=== PATIENT | male | born 1955 | race Caucasian/White ===

== ENCOUNTER 2020-09-09 08:11 | Emergency (ER) | payer BC, SELFPAY ==
--- NOTE | ~2020-09-09 | XR_ITS ---
EXAMINATION: XR finger 3rd RT min 2V EXAM DATE: 09/09/2020 09:27 INDICATION: Check finger tip in door. Pain. Initial encounter. TECHNIQUE: Right 3rd finger frontal, lateral and oblique projections obtained and reviewed. There is no prior study for comparison. FINDINGS: There are no acute fractures or dislocations identified. There is no subcutaneous gas. The re is soft tissue swelling over the proximal interphalangeal joint dorsally. There are no radiopaqu e foreign bodies. 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 IMPRESSION: 1. Right 3rd finger exam without acute osseous findings. 2. Soft tissue swelling. Reviewed, dictated and finalized at location B. [facility] [employer] NURSE
[2020-09-09 08:18] VITALS: BP 164/94; PULSE 77; RESP 16; TEMP 36.8; O2SAT 99
[2020-09-09] MEDS: LIDOCAINE, EPINEPHRINE, TETRACAINE VISCOUS SOLN 3 ML TOPICAL (08:38)
--- NOTE | 2020-09-09 09:22 | ED.WOUNDLAC ---
HPI - Wound/Laceration General Chief Complaint: Wound/Laceration Stated Complaint: FINGER LACERATION Time Seen by Provider: 09/09/20 08:25 Source: patient and RN notes reviewed Mode of arrival: ambulatory Limitations: no limitations History of Present Illness HPI narrative: 65-year-old male presents with concern for laceration, smash injury to the third digit of his right hand. Reports just prior to arrival he caught his hand in a door. Reports laceration to the palmar aspect of the digit. Reports he is not up-to-date on his vaccinations. Reports he is on a blood thinner, and has had trouble getting the wound to stop bleeding. Denies any decreased sensation, range of motion, strength in the digit. Related Data Home Medications Medication Instructions Recorded Confirmed aspirin 81 mg tablet,delayed 81 mg PO DAILY 07/10/19 07/10/19 release clopidogrel 75 mg tablet 75 mg PO DAILY 07/10/19 07/10/19 gabapentin 300 mg capsule 300 mg PO TID 07/10/19 07/10/19 therapeutic multivitamin 1 tablet PO DAILY 07/10/19 07/10/19 Allergies Allergy/AdvReac Type Severity Reaction Status Date / Time iodine Allergy Unknown Hives Verified 03/11/20 11:05 Review of Systems Review of Systems: Narrative: CONSTITUTIONAL: Denies malaise, chills, sweats, or fever. SKIN: Reports laceration to the palmar aspect of the distal end of the third digit of the right hand MUSCULOSKELETAL: Reports pain to the distal tip of the third digit of the right hand NEUROLOGIC: Denies numbness, weakness All systems reviewed & are unremarkable except as noted in HPI and below PMFSH Past Medical History Medical History (Updated 09/09/20 @ 09:33 by Porsche Stephens NP) CAD (coronary artery disease) Colonic polyp HLD (hyperlipidemia) HTN (hypertension) Myocardial infarction Surgical History Surgical History (Updated 07/10/19 @ 13:26 by Arabella Vargas CMA) History of placement of stent in LAD coronary artery S/P right coronary artery (RCA) stent placement Family History Family History (Updated 07/10/19 @ 13:27 by Arabella Vargas CMA) Mother Hypertension Father Hypertension Cerebral aneurysm Social History Social History Smoking status: Former smoker Smoking end date: 07/03/10 Alcohol intake: current Comments At time of signature, agree with nursing past medical, surgical, social and family history. There is no relevant family history pertinent to the presenting complaint Exam Narrative: Exam Narrative: GENERAL: Well-appearing, well-nourished, and in no acute distress. HEAD: Normocephalic EYES: PERRLA, conjunctivae clear NECK: Supple. CHEST: Speaks in full sentences. No respiratory distress. HEART: Regular rate and rhythm. Normal and equal peripheral pulses. EXTREMITIES: Third digit of right hand has normal strength and sensation. 5/5 strength with digit flexion, extension. Range of motion normal. No clubbing, cyanosis, or edema noted. Distal tenderness.Normal digital cascade with flexion of fingers, median, ulnar and radial nerve intact. Normal sensation of each side of finger. Can perform 'okay' sign, 'cross over finger test of index and middle fingers' and 'thumbs up' sign. No scissoring. Normal thumb opposition. Good capillary refill and radial pulse. Distal capillary refill less than 3 seconds. SKIN: Warn, dry, intact, pink. 1.5 cm irregular laceration noted to the dorsal aspect of distal tip of the third digit of the right hand, into the subcutaneous tissue with bleeding noted. Subungual hematoma noted to the third digit of the right hand NEURO: Alert and oriented x3. PSYCH: Normal mood and affect Course Course Emergency Course: Patient is aware of diagnosis, understands and agrees to treatment plan. Anticipatory guidance given. Patient agrees to follow-up as directed and is aware of reasons to seek care at the emergency department. Portions of this record may have been created with voice recognition software Vital Signs
[2020-09-09] MEDS: TETANUS,DIPHTHERIA,AC PERTUSSIS ADULT (0.5 ML) BOOSTRIX IM (09:33)
== END 2020-09-09 09:49 | disposition home or self-care (01) ==
PROVIDERS: Emergency Provider Nurse Practitioner; PCP Internal Medicine
DX: S61.212A Laceration without foreign body of right middle finger without damage to nail, initial encounter (principal); S60.031A Contusion of right middle finger without damage to nail, initial encounter; W23.0XXA Caught, crushed, jammed, or pinched between moving objects, initial encounter; Z23 Encounter for immunization; Z87.891 Personal history of nicotine dependence; I25.10 Atherosclerotic heart disease of native coronary artery without angina pectoris; E78.5 Hyperlipidemia, unspecified; I10 Essential (primary) hypertension; I25.2 Old myocardial infarction; Z79.82 Long term (current) use of aspirin; Z95.5 Presence of coronary angioplasty implant and graft
CPT/HCPCS: 12001; 11740; 73140; 90471; 90715; 99213; G0463

== ENCOUNTER 2020-09-11 08:29 | Outpatient (CLI) | payer BC, SELFPAY ==
[2020-09-11 09:01] LABS: Basophils Absolute Auto 0.1 K/mm3 (0.0-0.1); Basophils Percent Auto 0.8 % (0.2-1.2); Eosinophils Absolute Auto 0.5 K/mm3 (0-0.3); Eosinophils Percent Auto 5.8 % (0-4.4); Hematocrit 43.1 % (42.0-52.0); Hemoglobin 14.6 g/dL (14.0-18.0); Immature Granulocyte Absolute 0.05 K/mm3 (0.00-0.031); Immature Granulocyte Percent A 0.6 % (0-0.5); Lymphocytes Absolute Auto 1.61 K/mm3 (0.9-3.2); Lymphocytes Percent Auto 19.1 % (18.3-44.2); Mean Corpuscular HGB Conc 33.9 g/dl (32-36); Mean Corpuscular Hemoglobin 29.9 pg (26-34); Mean Corpuscular Volume 88.1 fl (80-100); Mean Platelet Volume 11.7 fl (7.4-10.4); Monocytes Absolute Auto 0.9 K/mm3 (0.1-0.6); Neutrophils Absolute Auto 5.3 K/mm3 (1.3-6.7); Neutrophils Percent Auto 62.7 % (45.5-73.1); Platelet Count Result 205 k/mm3 (150-375); Red Blood Count 4.89 M/mm3 (4.6-6.20); Red Cell Distribution Width 12.8 % (11.5-14.5); White Blood Count 8.4 K/mm3 (4.5-10.0)
[2020-09-11 09:19] LABS: Alanine Aminotransferase 25 U/L (4-50); Alkaline Phosphatase 78 U/L (38-126); Anion Gap 4 mmol/L (8-16); Aspartate Amino Transferase 27 U/L (17-59); Bilirubin,Total 0.5 mg/dL (0.2-1.3); Blood Urea Nitrogen 17 mg/dL (9-20); Calcium 9.1 mg/dL (8.4-10.2); Carbon Dioxide 31 mmol/L (22-30); Chloride 104 mmol/L (98-107); Cholesterol 160 mg/dL (0-200); Estimated Glomerular Filt Rate > 60; Glucose 104 mg/dL (75-110); HDL Direct 45 mg/dL; Potassium 4.1 mmol/L (3.4-5.0); Sodium 139 mmol/L (137-145); Triglycerides 98 mg/dL (<150)
[2020-09-11 09:30] LABS: LDL Cholesterol Direct 84 mg/dL
[2020-09-11 09:50] LABS: Prostate Specific Antigen 1.3 ng/mL (< OR = 4.0)
== END 2020-09-11 08:30 | disposition home or self-care (01) ==
PROVIDERS: PCP Internal Medicine; Visit Provider Clinical Nurse Specialist
DX: I10 Essential (primary) hypertension (principal); E78.2 Mixed hyperlipidemia; Z12.5 Encounter for screening for malignant neoplasm of prostate
CPT/HCPCS: 36415; 80053; 80061; 84153; 85025; G0103

== ENCOUNTER 2021-05-21 10:30 | Outpatient (RCR) | payer BC, SELFPAY ==
[2021-04-22 09:00] VITALS: BP_SYST 160
--- NOTE | 2021-04-22 16:11 | PTOPEVAL ---
Thank you for referring Orion Jane to [facility] [place].? The patient is scheduled to be seen for therapy? 2 x/week for 6 weeks. Please review, sign, date and return this plan of care CHRISTINA. I agree with and certify that the following plan of care is medically necessary. Referring Physician Date Attending Provider: Vicki Calle, REAL ESTATE OFFICE SUPERVISOR-C Diagnosis right shoulder pain Onset 4 wk Cause no injury Additional Evaluation Detail His hobbies include fishing, yardwork, taking care of animals, cutting wood. He has a large aquarium he uses 5 gallon bucket to change the water. Subjective Information He woke up with shoulder pain Query Text:As Reported By Patient/ 4 wks ago. He reports Family increased pain with lying on side, reaching motion, ADL's and carrying objects. He reports limitation with behavioral scientist. Reports the pain has improved slightly in the past 3 days but unsure why its feels better. He has applied ice/heat with temporary relief. Pain Assessment Right Shoulder(s) Reported Pain Level 4 Pain Description Radiating,Sharp,Soreness Pain Radiation Right Arm Pain Frequency Acute Lowest Pain Intensity 2 Greatest Pain Intensity 8 Pain Aggravating Factors ADL's,Exercise/Activity, Lifting,Prolonged Position Upper Extremity Range of Motion Scapular/ Shoulder Range of Motion Right Shoulder Flexion - Active 115 Shoulder Flexion - Passive 160 Shoulder Extension - Active 28 Shoulder Extension - Passive 60 Shoulder Abduction - Active 130 Shoulder Abduction - Passive 160 Shoulder Medial Rotation - Active 50 Shoulder Medial Rotation - Active buttock:Reach Behind the Back Shoulder Lateral Rotation - Active 85 Shoulder Lateral Rotation - Active C6:Reach Behind the Head Scapular/Shoulder Range of Motion Muscle Weakness,Soft Tissue Limitations Restriction Scapular/Shoulder Range of Motion rotation in supine with Gh Comments abducted 80 dg Upper Extremity Muscle Strength Testing Scapular/Shoulder Right Scapular Retraction - Middle Trapezius 2 Poor Scapular Retraction - Lower Trapezius 2 Poor Shoulder Flexion Strength 3- Fair - Shoulder Extension Strength 4- Good - Shoulder Abduction Strength 3- Fair
--- NOTE | 2021-05-21 11:10 | PTOPEVAL ---
Physical therapy discharge summary Thank you for referring Orion Jane to [facility] [place]. Orion has attended 9 therapy visits to address his shoulder impairments. As a result of skilled therapy services he demonstrates improved shoulder motion, improve strength and improved ability to perform daily task. He has reached maximal potential with skilled therapy services at this time. Will DC skilled PT services. Please review, sign, date and return this discharge summary CHRISTINA. I agree with and certify that the following plan of care is medically necessary. Referring Physician Date Attending Provider: Vicki Calle, ISABEL-C Diagnosis right shoulder pain Onset 4 wk Cause no injury Additional Evaluation Detail His hobbies include fishing, yardwork, taking care of animals, cutting wood. He has a large aquarium he uses 5 gallon bucket to change the water. Subjective Information He feels therapy has helped Query Text:As Reported By Patient/ with improved shoulder motion, Family improve use of the right UE with daily task. He is more aware of his shoulder and UE with daily task and lifting. He is performing HEP daily. Improved dmaien with sleeping with 6-7 hr of sleep. Pain Assessment Right Shoulder(s) Reported Pain Level 1 Pain Description Soreness Lowest Pain Intensity 1 Greatest Pain Intensity 3 Upper Extremity Range of Motion Scapular/ Shoulder Range of Motion Right Shoulder Flexion - Active 160 Shoulder Extension - Active 58 Shoulder Abduction - Active 170 Shoulder Medial Rotation - Active 70 Shoulder Medial Rotation - Active L2:Reach Behind the Back Shoulder Lateral Rotation - Active 90 Shoulder Lateral Rotation - Active T1:Reach Behind the Head Scapular/Shoulder Range of Motion Muscle Weakness,Soft Tissue Limitations Restriction Scapular/Shoulder Range of Motion rotation in supine with Gh Comments abducted 80 dg Upper Extremity Muscle Strength Testing Scapular/Shoulder Right Scapular Retraction - Middle Trapezius 3 Fair Scapular Retraction - Lower Trapezius 3 Fair Shoulder Flexion Strength 3+ Fair + Shoulder Extension Strength 4+ Good + Shoulder Abduction Strength 3+ Fair + Shoulder Medial Rotation Strength 4 Good Shoulder Lateral Rotation Strength 4 Good Shoulder Strength Comments pain with flex and abduction Palpation Assessment Palpation mild tenderness of right deltoid, bicep muscle at
== END 2021-05-24 16:12 | disposition home or self-care (01) ==
LOC: ANHPT 10:30
PROVIDERS: PCP Internal Medicine; Visit Provider Clinical Nurse Specialist
DX: M25.511 Pain in right shoulder (principal)
CPT/HCPCS: 97014; 97110; 97140; 97162; G0283

== ENCOUNTER 2021-10-04 10:27 | Outpatient (CLI) | payer BC, SELFPAY ==
[2021-10-04 11:08] LABS: Basophils Absolute Auto 0.1 K/mm3 (0.0-0.1); Basophils Percent Auto 0.9 % (0.2-1.2); Eosinophils Absolute Auto 0.4 K/mm3 (0-0.3); Eosinophils Percent Auto 5.7 % (0-4.4); Hematocrit 46.5 % (42.0-52.0); Hemoglobin 16.1 g/dL (14.0-18.0); Immature Granulocyte Absolute 0.04 K/mm3 (0.00-0.031); Immature Granulocyte Percent A 0.5 % (0-0.5); Lymphocytes Absolute Auto 1.35 K/mm3 (0.9-3.2); Lymphocytes Percent Auto 17.6 % (18.3-44.2); Mean Corpuscular HGB Conc 34.6 g/dl (32-36); Mean Corpuscular Hemoglobin 30.7 pg (26-34); Mean Corpuscular Volume 88.7 fl (80-100); Mean Platelet Volume 11.3 fl (7.4-10.4); Monocytes Percent Auto 12.5 % (2.6-8.5); Neutrophils Absolute Auto 4.8 K/mm3 (1.3-6.7); Neutrophils Percent Auto 62.8 % (45.5-73.1); Platelet Count Result 207 k/mm3 (150-375); Red Blood Count 5.24 M/mm3 (4.6-6.20); Red Cell Distribution Width 12.8 % (11.5-14.5); White Blood Count 7.7 K/mm3 (4.5-10.0)
[2021-10-04 11:18] LABS: Alanine Aminotransferase 23 U/L (4-50); Albumin Level 4.4 g/dL (3.5-5.1); Alkaline Phosphatase 73 U/L (38-126); Anion Gap 7 mmol/L (8-16); Aspartate Amino Transferase 32 U/L (17-59); Bilirubin,Total 0.5 mg/dL (0.2-1.3); Blood Urea Nitrogen 14 mg/dL (9-20); Carbon Dioxide 28 mmol/L (22-30); Chloride 101 mmol/L (98-107); Cholesterol 188 mg/dL (0-200); Estimated Glomerular Filt Rate > 60; Glucose 106 mg/dL (65-110); HDL Direct 54 mg/dL; Potassium 4.2 mmol/L (3.4-5.0); Sodium 136 mmol/L (137-145); Triglycerides 69 mg/dL (<150)
[2021-10-04 11:28] LABS: LDL Cholesterol Direct 101 mg/dL
[2021-10-04 11:48] LABS: Prostate Specific Antigen 1.3 ng/mL (< OR = 4.0)
== END 2021-10-04 10:28 | disposition home or self-care (01) ==
PROVIDERS: PCP Internal Medicine; Visit Provider Clinical Nurse Specialist
DX: E78.2 Mixed hyperlipidemia (principal); I10 Essential (primary) hypertension; Z12.5 Encounter for screening for malignant neoplasm of prostate
CPT/HCPCS: 36415; 80053; 80061; 84153; 85025; G0103

== ENCOUNTER 2021-10-07 16:08 | Outpatient (CLI) | payer BC, SELFPAY ==
--- NOTE | ~2021-10-07 | CT_ITS ---
EXAMINATION:CT lung screening DATE: 10/07/2021 16:31 INDICATION: Personal history of nicotine dependence. Smoker who quit 11 years ago with 35 pack year h istory. TECHNIQUE: Computed tomography (CT) of the chest was performed without intravenous contrast. Automate d exposure control and iterative reconstruction technique were employed. The dose-length product (DLP ) was 293.53 mGy-cm. COMPARISON: None. FINDINGS: There is mild emphysema. There is peripheral septal thickening in the lungs, likely chronic . There is a 2 mm nodule in left lower lobe. No pleural effusion. The heart size is normal. There are coronary artery calcifications. No pericardial effusion. Calcified left hilar and mediastinal lymph nodes are consistent with old granulomatous disease. Calcifications in the liver and spleen are consi stent with old granulomatous disease. There is mild thoracic spondylosis. There is severe cervical sp ondylosis. IMPRESSION: 1. Lung-RADS category 2: Benign appearance or behavior. Continue annual screening with noncontrast lo w-dose chest CT in 12 months. Reviewed, dictated and finalized at location A. IMPRESSION: 1. Lung-RADS category 2: Benign appearance or behavior. Continue annual screeni ng with noncontrast low-dose chest CT in 12 months.
== END 2021-10-07 16:09 | disposition home or self-care (01) ==
PROVIDERS: PCP Internal Medicine; Visit Provider Clinical Nurse Specialist
DX: Z87.891 Personal history of nicotine dependence (principal)
CPT/HCPCS: 71271

== ENCOUNTER 2022-06-08 09:51 | Outpatient (CLI) | payer BC, SELFPAY ==
[2022-06-08 10:21] LABS: Anion Gap 7 mmol/L (8-16); Blood Urea Nitrogen 12 mg/dL (9-20); Carbon Dioxide 30 mmol/L (22-30); Chloride 102 mmol/L (98-107); Estimated Glomerular Filt Rate > 60; Glucose 105 mg/dL (65-110); Potassium 4.1 mmol/L (3.4-5.0); Sodium 139 mmol/L (137-145)
== END 2022-06-08 09:52 | disposition home or self-care (01) ==
PROVIDERS: PCP Internal Medicine; Visit Provider Clinical Nurse Specialist
DX: I10 Essential (primary) hypertension (principal)
CPT/HCPCS: 36415; 80048

== ENCOUNTER 2022-10-04 08:12 | Outpatient (CLI) | payer BC, SELFPAY ==
[2022-10-04 19:51] LABS: Basophils Absolute Auto 0.1 K/mm3 (0.0-0.1); Basophils Percent Auto 0.5 % (0.2-1.2); Eosinophils Absolute Auto 0.4 K/mm3 (0-0.3); Eosinophils Percent Auto 3.6 % (0-4.4); Hemoglobin 14.2 g/dL (14.0-18.0); Immature Granulocyte Absolute 0.04 K/mm3 (0.00-0.031); Immature Granulocyte Percent A 0.3 % (0-0.5); Lymphocytes Percent Auto 10.1 % (18.3-44.2); Mean Corpuscular HGB Conc 32.3 g/dl (32-36); Mean Corpuscular Hemoglobin 29.8 pg (26-34); Mean Corpuscular Volume 92.4 fl (80-100); Mean Platelet Volume 12.5 fl (7.4-10.4); Monocytes Absolute Auto 1.6 K/mm3 (0.1-0.6); Monocytes Percent Auto 13.4 % (2.6-8.5); Neutrophils Absolute Auto 8.6 K/mm3 (1.3-6.7); Neutrophils Percent Auto 72.1 % (45.5-73.1); Platelet Count Result 205 k/mm3 (150-375); Red Blood Count 4.76 M/mm3 (4.6-6.20); Red Cell Distribution Width 12.9 % (11.5-14.5); White Blood Count 11.9 K/mm3 (4.5-10.0)
[2022-10-04 20:59] LABS: Alanine Aminotransferase 22 U/L (6-50); Albumin Level 4.1 g/dL (3.5-5.1); Alkaline Phosphatase 86 U/L (38-126); Anion Gap 7 mmol/L (8-16); Aspartate Amino Transferase 53 U/L (17-59); Bilirubin,Total 0.8 mg/dL (0.2-1.3); Blood Urea Nitrogen 15 mg/dL (9-20); Calcium 8.7 mg/dL (8.4-10.2); Carbon Dioxide 31 mmol/L (22-30); Chloride 98 mmol/L (98-107); Cholesterol 147 mg/dL (0-200); Estimated Glomerular Filt Rate > 60; Glucose 85 mg/dL (65-110); HDL Direct 44 mg/dL; Potassium 3.9 mmol/L (3.4-5.0); Sodium 136 mmol/L (137-145); Triglycerides 77 mg/dL (<150)
[2022-10-04 21:10] LABS: LDL Cholesterol Direct 70 mg/dL
[2022-10-04 21:30] LABS: Prostate Specific Antigen 1.3 ng/mL (< OR = 4.0)
== END 2022-10-04 08:13 | disposition home or self-care (01) ==
LOC: ANHGOSHLAB 08:13
PROVIDERS: PCP Internal Medicine; Visit Provider Clinical Nurse Specialist
DX: I25.10 Atherosclerotic heart disease of native coronary artery without angina pectoris (principal); E78.5 Hyperlipidemia, unspecified; Z12.5 Encounter for screening for malignant neoplasm of prostate
CPT/HCPCS: 36415; 80053; 80061; 84153; 85025; G0103

== ENCOUNTER → 2022-11-02 10:09 | Outpatient (CLI) | payer BC, SELFPAY ==
--- NOTE | ~2022-11-02 | CT_ITS ---
EXAMINATION: CT lung screening DATE: 11/02/2022 10:22 INDICATION: Z87.891 - Personal history of nicotine dependence TECHNIQUE: Computed tomography (CT) of the chest was performed without intravenous contrast. Addition al 3D reconstructions utilizing coronal maximum intensity projection (MIP) were performed. Automated exposure control and iterative reconstruction technique were employed. The dose-length product was 37 6.28 mGy-cm. COMPARISON: None FINDINGS: Mild emphysema. Cluster of tiny nodules at the superior segment of the left lower lobe, the largest a calcified 2-3 mm nodule which along with calcified left hilar and mediastinal lymph nodes consistent with old granulomatous disease. There are 3 flat triangular or lenticular likely intrafissural lymph nodes along the left major fissure the largest measuring 8 mm in maximal diameter. No pneumonia, pul monary edema or pleural effusion. Heart size is normal. Atherosclerotic coronary artery calcification . No pericardial effusion. Aortic valve calcification. Normal caliber thoracic aorta. No pathological ly enlarged thoracic lymphadenopathy. Multiple hepatic and splenic calcific lesions also consistent w ith old granulomatous disease. Mild thoracic and moderate lower cervical spondylosis. IMPRESSION: 1. Lung-RADS category 2: Benign appearance or behavior. Continue annual screening with noncontrast lo w-dose chest CT in 12 months. Reviewed, dictated and finalized at location B. IMPRESSION: 1. Lung-RADS category 2: Benign appearance or behavior. Continue annual screeni ng with noncontrast low-dose chest CT in 12 months.
== END ==
PROVIDERS: PCP Internal Medicine; Visit Provider Clinical Nurse Specialist
DX: Z12.2 Encounter for screening for malignant neoplasm of respiratory organs (principal); Z87.891 Personal history of nicotine dependence
CPT/HCPCS: 71271

== ENCOUNTER 2023-10-11 08:13 | Outpatient (CLI) | payer BC, SELFPAY ==
[2023-10-11 13:01] LABS: Basophils Absolute Auto 0.1 K/mm3 (0.0-0.1); Basophils Percent Auto 0.7 % (0.2-1.2); Eosinophils Absolute Auto 0.4 K/mm3 (0-0.3); Eosinophils Percent Auto 3.5 % (0-4.4); Hematocrit 45.3 % (42.0-52.0); Hemoglobin 15.4 g/dL (14.0-18.0); Immature Granulocyte Absolute 0.03 K/mm3 (0.00-0.031); Immature Granulocyte Percent A 0.3 % (0-0.5); Lymphocytes Percent Auto 12.9 % (18.3-44.2); Mean Corpuscular Hemoglobin 30.6 pg (26-34); Mean Corpuscular Volume 89.9 fl (80-100); Mean Platelet Volume 12.5 fl (7.4-10.4); Monocytes Absolute Auto 1.1 K/mm3 (0.1-0.6); Neutrophils Absolute Auto 7.2 K/mm3 (1.3-6.7); Neutrophils Percent Auto 71.6 % (45.5-73.1); Platelet Count Result 183 k/mm3 (150-375); Red Blood Count 5.04 M/mm3 (4.6-6.20); Red Cell Distribution Width 13.2 % (11.5-14.5); White Blood Count 10.1 K/mm3 (4.5-10.0)
[2023-10-11 13:18] LABS: Alanine Aminotransferase 25 U/L (6-50); Albumin Level 4.3 g/dL (3.5-5.1); Alkaline Phosphatase 85 U/L (38-126); Anion Gap 8 mmol/L (4-12); Aspartate Amino Transferase 42 U/L (17-59); Bilirubin,Total 0.9 mg/dL (0.2-1.3); Blood Urea Nitrogen 19 mg/dL (9-20); Calcium 9.3 mg/dL (8.4-10.2); Carbon Dioxide 28 mmol/L (22-30); Chloride 101 mmol/L (98-107); Cholesterol 172 mg/dL (0-200); Estimated Glomerular Filt Rate > 60; Glucose 105 mg/dL (65-110); HDL Direct 46 mg/dL; Potassium 4.2 mmol/L (3.4-5.0); Sodium 137 mmol/L (137-145); Triglycerides 114 mg/dL (<150)
[2023-10-11 13:29] LABS: LDL Cholesterol Direct 105 mg/dL
[2023-10-11 13:46] LABS: Prostate Specific Antigen 1.6 ng/mL (< OR = 4.0)
== END 2023-10-11 08:14 | disposition home or self-care (01) ==
LOC: ANHGOSHLAB 08:15
PROVIDERS: PCP Internal Medicine; Visit Provider Clinical Nurse Specialist
DX: I25.10 Atherosclerotic heart disease of native coronary artery without angina pectoris (principal); E78.2 Mixed hyperlipidemia; I10 Essential (primary) hypertension; Z12.5 Encounter for screening for malignant neoplasm of prostate
CPT/HCPCS: 36415; 80053; 80061; 84153; 85025; G0103

== ENCOUNTER 2023-11-07 11:10 | Outpatient (CLI) | payer BC, SELFPAY ==
--- NOTE | ~2023-11-07 | CT_ITS ---
CT Scan of the Chest without Contrast: Clinical Indication: Lung cancer screening, nicotine dependence Technique: Contiguous sections were acquired throughout the chest without intravenous contrast. Dose reduction technique was used on this scan by utilizing automated exposure control and iterative recon struction technique. The dose-length product (DLP) was 285.18 mGy-cm. COMPARISON: 11/02/2022 Findings: There is no evidence of any significant mediastinal, hilar or axillary lymphadenopathy. Coronary kirk ry calcifications are present. There is no evidence of pleural or pericardial effusion. Stable subcentimeter fissural nodules in the left lung. Images through the upper abdomen reveal no abnormalities. Impression: Lung RADS 2: Benign appearance. 12 month follow-up screening CT advised. Reviewed, dictated and finalized at location . Impression: Lung RADS 2: Benign appearance. 12 month follow-up screening CT advised.
== END 2023-11-07 11:11 ==
LOC: GOSHIMG 11:10
PROVIDERS: PCP Internal Medicine; Visit Provider Clinical Nurse Specialist
DX: Z12.2 Encounter for screening for malignant neoplasm of respiratory organs (principal); Z87.891 Personal history of nicotine dependence
CPT/HCPCS: 71271

== ENCOUNTER 2023-11-07 11:22 | Outpatient (CLI) | payer BC, SELFPAY ==
[2023-11-07 13:57] LABS: Basophils Percent Auto 0.4 % (0.2-1.2); Eosinophils Absolute Auto 0.4 K/mm3 (0-0.3); Eosinophils Percent Auto 3.9 % (0-4.4); Hematocrit 45.8 % (42.0-52.0); Hemoglobin 15.7 g/dL (14.0-18.0); Immature Granulocyte Absolute 0.04 K/mm3 (0.00-0.031); Immature Granulocyte Percent A 0.4 % (0-0.5); Lymphocytes Absolute Auto 1.81 K/mm3 (0.9-3.2); Lymphocytes Percent Auto 18.8 % (18.3-44.2); Mean Corpuscular HGB Conc 34.3 g/dl (32-36); Mean Corpuscular Hemoglobin 30.5 pg (26-34); Mean Corpuscular Volume 88.9 fl (80-100); Mean Platelet Volume 11.8 fl (7.4-10.4); Monocytes Absolute Auto 0.9 K/mm3 (0.1-0.6); Monocytes Percent Auto 9.6 % (2.6-8.5); Neutrophils Absolute Auto 6.5 K/mm3 (1.3-6.7); Neutrophils Percent Auto 66.9 % (45.5-73.1); Platelet Count Result 226 k/mm3 (150-375); Red Blood Count 5.15 M/mm3 (4.6-6.20); Red Cell Distribution Width 13.9 % (11.5-14.5); White Blood Count 9.7 K/mm3 (4.5-10.0)
== END 2023-11-07 11:23 | disposition home or self-care (01) ==
LOC: ANHGOSHLAB 11:24
PROVIDERS: PCP Internal Medicine; Visit Provider Clinical Nurse Specialist
DX: D72.829 Elevated white blood cell count, unspecified (principal)
CPT/HCPCS: 36415; 85025

== ENCOUNTER 2024-04-26 09:46 | Outpatient (CLI) | payer BC, SELFPAY ==
--- NOTE | ~2024-04-26 | MR_ITS ---
EXAMINATION: MR lumbar spine wo con DATE: 04/26/2024 10:17 INDICATION: Low back pain. Spondylolysis, lumbar region. TECHNIQUE: Magnetic resonance imaging (MRI) of the lumbar spine was performed without intravenous con trast. Sequences included sagittal T2-weighted FSE, sagittal T2-weighted FS FSE, sagittal T1-weighted FSE, and axial T2-weighted FSE. COMPARISON: Lumbar spine MRI 01/25/2018 FINDINGS: There is 20 degrees levoscoliosis of lumbar spine. There is 3 mm retrolisthesis of L2 on L3 . There is mild chronic anterior wedging of T11 and T12 vertebral bodies. There is moderately decreas ed disc height at T12-L1, severely decreased disc height from L1-L2 through L3-L4, moderately decreas ed disc height at L4-L5, and severely decreased disc height at L5-S1 with endplate remodeling. Epidur al lipomatosis is noted. The distal spinal cord signal intensity is normal. The conus medullaris is a t T12. The following disc levels are specifically discussed: L1-L2: The disc is bulging and has an annular fissure. There is severe right and moderate left facet joint osteoarthritis. There is moderate right and mild left neural foraminal stenosis. There is mild central canal stenosis. L2-L3: The disc is bulging and has an annular fissure. There is severe right and moderate left facet joint osteoarthritis. There is moderate right and mild left neural foraminal stenosis. There is mild central canal stenosis. L3-L4: The disc is bulging and has an annular fissure. There is severe bilateral facet joint osteoart hritis. There is moderate bilateral neural foraminal stenosis. There is moderate central canal stenos is. L4-L5: The disc is bulging and has an annular fissure. There is moderate right and severe left facet joint osteoarthritis. There is moderate bilateral neural foraminal stenosis. There is moderate centra l canal stenosis. L5-S1: The disc is bulging and has an annular fissure. There is moderate right and severe left facet joint osteoarthritis. There is moderate bilateral neural foraminal stenosis. There is mild central ca nal stenosis. IMPRESSION: 1. Severe lumbar spondylosis, worsened from 01/25/2018. 2. Lumbar levoscoliosis. Reviewed, dictated and finalized at location A.
== END 2024-04-26 09:47 | disposition home or self-care (01) ==
LOC: GOSHIMG 09:46
PROVIDERS: PCP Internal Medicine; Visit Provider Clinical Nurse Specialist
DX: M47.896 Other spondylosis, lumbar region (principal)
CPT/HCPCS: 72148

== ENCOUNTER 2024-06-06 09:00 | Outpatient (RCR) | payer BC, SELFPAY ==
--- NOTE | 2024-05-07 12:43 | OPREHPOC ---
Outpatient Therapy Plan of Care This is a Multidisciplinary Plan of Care that may contain components documented by all disciplines (PT, OT, and ST.) PT Problem 1 PT Problem #1 Knowledge Deficit PT Goal 1 Goal / Goal Update Pt to be IND with issued HEP Target Visit 8 PT Problem 2 PT Problem #2 Pain PT Goal 1 Goal / Goal Update 1. Pt to report back pain no greater than 4/10 in the last week. 2. Pt to report 50% improvement in overall symptoms. Target Visit 8 PT Problem 3 PT Problem #3 Impaired Functional Mobil PT Goal 1 Goal / Goal Update 1. Pt to demonstrate a 30lb lift and carry without an increase in symptoms.
--- NOTE | 2024-05-07 12:43 | PTOPEVAL1 ---
Assessment and note entered by Stacey Sorto, PT, DPT Evaluation Information Assessment Status Evaluation Diagnosis lumbar spondylosis Subjective Information Pt states a long history of back pain, states he has been through several rounds of therapy, pain management, and multiple visits to the chiropractor. He states the last time he has been getting regular care for his back was in 2018 prior to covnh. He states about 6 weeks ago he picked up his dog and felt a pull in his lower L side of his back, for the week after this he was essentially able to get out of bed. He states it has improved some since then but he feels like he has had to limit his activity to protect his back. He is also planning on going to pain management in Jun. His pain is worse in the morning. Pt normally does a lot of walking and yard work, he usually walks 45 mins daily but has not since his injury. Reported Pain Level Pain Score 2: Self Report Assessment PT Clinical Summary Pt presents to therapy today for his initial evaluation with a diagnosis of lumbar spondylosis. Today he demonstrates decreased trunk motion, favoring the L side, ambulates with an uncompensated L Trendelenburg pattern, forward trunk lean, and R midfoot collapse. He has notable hip and core weakness as well. There a is palpable increase in soft tissue density in his lower left quadrant. Skilled therapy services are indicated to improve soft tissue mobility, lumbar stability, gait pattern, pain return, and to return to PLOF. Plan of Care Interventions Electrical Stimulation,Gait Training,Hot Pack/Cold Pack,Manual Therapy,Neuro Re-education,Patient/ Caregiver Educati,Therapeutic Activities, Therapeutic Exercise PT Services Indicated Yes Treatment Frequency and 2x/wk for 8 visits Duration These treatments will address the objective and functional deficits as defined above. The patient will be advanced safely and appropriately in order for the patient to progress towards his/her prior level of function. Additional exercises will be introduced and as well as a comprehensive home exercise program upon discharge, if needed, ?to ensure carryover of functional gains achieved in the clinic. This treatment plan has been reviewed and agreement upon by the patient.
--- NOTE | 2024-06-06 09:55 | OPREHPOC ---
Outpatient Therapy Plan of Care This is a Multidisciplinary Plan of Care that may contain components documented by all disciplines (PT, OT, and ST.) PT Problem 1 PT Problem #1 Knowledge Deficit PT Goal 1 Goal / Goal Update Pt to be IND with issued HEP Target Visit 8 Progress Met PT Problem 2 PT Problem #2 Pain PT Goal 1 Goal / Goal Update 1. Pt to report back pain no greater than 4/10 in the last week. 2. Pt to report 50% improvement in overall symptoms. 06/06/24: 1-2. progressing Target Visit 8 PT Problem 3 PT Problem #3 Impaired Functional Mobil PT Goal 1 Goal / Goal Update 1. Pt to demonstrate a 30lb lift and carry without an increase in symptoms. 06/06/24: 1. met
--- NOTE | 2024-06-06 09:55 | PTOPPROG ---
Assessment and note entered by Stacey Sorto, PT, DPT Evaluation Information Assessment Status Progress Diagnosis lumbar spondylosis Subjective Information Pt states he has improved since starting therapy. Reports still having pain to some degree everyday, and still has bad pain days. He states he is following up with pain management on 06/19. He states he does not want to be in therapy while he is waiting to go see pain management. Pt states he has been through 4-5 rounds of therapy and feel like he always ends up in the same situation with his pain. Assessment PT Clinical Summary Pt presents to therapy today for his progress report following 8 visits of skilled therapy to treat his diagnosis of lumbar spondylosis. Today he demonstrates improved pain reports with trunk motion, and still has palpable muscle spasms on his L side. He continues to ambulates with an uncompensated L Trendelenburg pattern, forward trunk lean, and R midfoot collapse. Continuation of skilled therapy services are indicated to continue progressing towards goals, to further improve pain, and to return to prior level of function. Plan of Care Interventions Electrical Stimulation,Gait Training,Hot Pack/Cold Pack,Manual Therapy,Neuro Re-education,Patient/ Caregiver Educati,Therapeutic Activities, Therapeutic Exercise PT Services Indicated Yes Treatment Frequency and 2x/wk for 8 visits after pain management follow up Duration These treatments will address the objective and functional deficits as defined above. The patient will be advanced safely and appropriately in order for the patient to progress towards his/her prior level of function. Additional exercises will be introduced and as well as a comprehensive home exercise program upon discharge, if needed, ?to ensure carryover of functional gains achieved in the clinic. This treatment plan has been reviewed and agreement upon by the patient.
--- NOTE | 2024-08-01 08:56 | PTOPDC ---
Assessment and note entered by Stacey Sorto, PT, DPT Evaluation Information Assessment Status Discharge - Pt Not Present Diagnosis lumbar spondylosis Subjective Information Called and spoke with pt. He states he is in the middle of a series of procedures for pain management. Plans to resume therapy in a couple of months when he is cleared to do so. Assessment PT Clinical Summary Pt will be discharged at this time. Will need a new order when he wants to continue therapy.
== END 2024-08-01 10:00 | disposition home or self-care (01) ==
LOC: ANHGOSHPT 09:00
PROVIDERS: PCP Internal Medicine; Visit Provider Clinical Nurse Specialist
DX: M43.06 Spondylolysis, lumbar region (principal)
CPT/HCPCS: 97014; 97110; 97140; 97161; 97530; G0283

== ENCOUNTER 2024-10-18 10:03 | Outpatient (CLI) | payer BC, SELFPAY ==
--- OUTSIDE RECORDS SUMMARY | 2024-10-18 10:15 | XMS_ITS | CONTINUITY OF CARE DOCUMENT ---
Author Name alban, alban Address Unknown Organization [facility] Address [address] [facility] [address] [place] [address] Phone [phone] Care Team Providers Care Lead Rider Name Role Phone Yudelka Rodrigues MD Unavailable [phone] Ravi Rondon MD Unavailable [phone] Ravi Rondon MD Unavailable PROBLEMS Condition Status Date Provider Notes PREMATURE VENTRICULAR CONTRACTIONS active M padma Rodrigues MD HYPERCHOLESTEROLEMIA active Yudelka Rodrigues MD HTN- 05/11 NUC INF LAT ISCHEMIA EF 62 active ? Jake Ugalde RN ENCOUNTERS Date Type Provider Location Encounter Diag nosis - In-person encounter Office Visit Yudelka Rodrigues MD [facility] PREMATURE VENTRICULAR CONTRACTIONSHTN- 05/11 NUC INF LAT ISCHEMIA EF 62HYPERCHOLESTEROLEM IA VITAL SIGNS Date Observation Value Provider blood pressure, diastolic, left arm 70 mm [Hg] Jake Ugalde RN blood pressure, systolic, left arm 117 mm [Hg] Jake Ugalde RN blood pressure, diastolic, right arm 86 m m[Hg] Jake Ugalde RN blood pressure, systolic, right arm 141 m m[Hg] Jake Ugalde RN blood pressure, diastolic 65 mm[Hg] Barry Ugalde RN blood pressure, systolic 128 mm[Hg] Jake Ugalde RN pulse rate 57 /min Jake Ugalde RN oxygen saturation, oximetry 98 % Jake Ugalde RN respiratory rate E&M 16 /min Jake tse RN weight E&M 240 [lb_av] Jake Ugalde RN HISTORY OF MEDICATION USE Medication Status Instructions Dates Provider Indications Com ments SIMVASTATIN 20 MG ORAL TABLET active po one at night Yudelka Rodrigues MD METOPROLOL SUCCINATE ER 50 MG ORAL TABLET EXTENDED RELEASE 24 HOUR active one tab. 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 Mood and affect are normal. Jake Ugalde RN INSURANCE PROVIDERS Payer name Policy type / Coverage type [facility] party ID [id number] OPEN ACCESS/PPO Other [id number] TREATMENT PLAN Date Name Performer NEW PT; ABNORMAL ROU ZAIN/ NORMAL THALLIUM/ PVC'S PER DR. RONDON: H is updated medication list for this problem includes: Metoprolol Succinate 50 Mg Tb24 (Metoprolol succinate) ..... One tab. daily BP today: 117/70 Orders: R enal Artery Duplex (CPT-[id number]) Yudelka Rodrigues MD NEW PT; ABNORMAL ROU ZAIN/ NORMAL THALLIUM/ PVC'S PER DR. RONDON: H is updated medication list for this problem includes: Metoprolol Succinate 50 Mg Tb24 (Metoprolol succinate) ..... One tab. daily Orders: E KG ([id number]) R enal Artery Duplex ([id number]) BP today: 117/70 Prior BP: / () Yudelka Rodrigues MD Date Name COMPREHENSIVE METABO LIC PANEL W/EGFR LIPID PANEL Renal Artery Duplex HISTORY OF PROCEDURES Procedure Date Procedure Name Provider Procedure Notes S tatus EKG Yudelka Rodrigues MD complet ed
--- OUTSIDE RECORDS SUMMARY | 2024-10-18 10:15 | XMS_ITS | Clinical Summary ---
Author Organization [facility] [address] Address [address] [place] [address] Care Team Providers Care Cylinder Loader Name Role Phone Francois Talley DO Primary Care Provider [phone] Erica Hogan RN Unavailable Unavailab le Allergies Active Allergy Reactions Criticality Noted Date Comments Iodinated Contrast Media Hives Medium Iodine Rash High Medications aspirin (ASPIR-81) 81 mg tablet take 1 Tablet by oral route every day 0 0 10/19/19 17 Active hydroCHLOROthiaz triston (HYDRODIURIL) 12.5 mg tablet take 1 tablet by oral route every day 0 0 10/19/19 17 Active therapeutic multivitamin (THERA) tabletIndication s:Vitamin Deficiency Prevention Take 1 tablet by mouth daily Active losartan (COZAAR) 100 mg tablet Take 1 tablet (100 mg total) by mouth daily Active atorvastatin (LIPITOR) 80 mg tablet TAKE 1/2 TABLET BY MOUTH EVERY EVENING 06/21/20 24 Active metoprolol XL (TOPROL-XL) 50 mg extended release tablet Take 1 tablet (50 mg total) by mouth daily 06/21/20 24 Active clopidogreL (PLAVIX) 75 mg tablet TAKE 1 TABLET BY MOUTH EVERY DAY 90 tablet 2 09/24/19 25 Active clopidogreL (PLAVIX) 75 mg tablet TAKE 1 TABLET BY MOUTH EVERY DAY 90 tablet 2 11/20/19 24 025 Discontinued Active Problems Problem Noted Date Diagnosed Date Lumbar stenosis with neurogenic claudication Lumbar facet arthropathy 06/19/2024 Other chronic pain 04/29/2019 Lumbar radiculopathy - Left 10/29/2018 Spondylosis of lumbosacral r egion without myelopathy or radiculopathy 08/22/2018 DDD (degenerative disc disease), lumbar 08/22/19 19 Chronic bilateral low back pain without sciatica 07/20/2018 Coronary artery disease invo lving [place] coronary artery of [place] heart without angina pectoris 04/12/2017 History of coronary artery stent placement 04/12 Subdural hematoma 09/08/2015 Brain lesion (from injury) 09/08/2015 Cerebral hemorrhage 08/13/2015 Encounters Date Type Department Care Team Description 09/12/2024 8:58 AM CDT - 09/12/2024 11:59 PM CDT Hospital Encounter [facility] the [facility] Advanced Medicine [address] [place] [address] Advanced Medicine [address] [place] [address] Shanika Jewell MD Spondylosis of lumbosacral region without myelopathy or radiculopathy Discharge Disposition: Discharge to home or self care 09/09/2024 Telephone [facility] [place] [facility] [address] [place] [address] Advanced Medicine [address] [place] [address] Gibran Shaver MD PhD PMC Preprocedure 09/04/2024 Telephone [facility] the [facility] Advanced Medicine [address] [place] [address] for Advanced Medicine [address] [place] [address] Shanika Jewell MD blood thinner 08/23/2024 Telephone [facility] [place] [facility] [address] [place] [address] Advanced Medicine [address] [place] [address] Shanika Jewell MD Post-op Follow-up 08/22/2024 10:34 AM CDL BULK DRIVER - 08/22/2024 11:59 PM CDL BULK DRIVER Hospital Encounter [facility] [address] [place] [address] Advanced Medicine [address] [place] [address] Shanika Jewell MD Spondylosis of lumbosacral region without myelopathy or radiculopathy (Primary Dx); Lumbar stenosis with neurogenic claudication; Lumbar facet arthropathy Discharge Disposition: Discharge to home or self care 08/20/2024 Telephone [facility] [place] [facility] [address] [place] [address] for Advanced Medicine [address] [place] [address] Shanika Jewell MD [facility] Preprocedure 08/16/2024 Telephone [facility] [place] [facility] [address] [place] [address] for Advanced Medicine [address] [place] [address] Shanika Jewell MD [facility] Preprocedure 08/12/2024 Telephone [facility] [place] [facility] [address] [place] [address] Advanced Medicine [address] [place] [address] Shanika Jewell MD Scheduling Appointments 08/09/2024 Telephone [facility] the [facility] Advanced Medicine [address] [place] [address] Advanced Medicine [address] [place] [address] Shanika Jewell MD [facility] Preprocedure 08/01/2024 Orders Only [facility] the [facility] Advanced Medicine [address] [place] [address] Advanced Medicine [address] [place] [address] Shanika Jewell MD Lumbar stenosis with neurogenic claudication (Primary Dx); Lumbar facet arthropathy 07/31/2024 Orders Only [facility] the [facility] Advanced Medicine [address] [place] [address] Advanced Medicine [address] [place] [address] Shanika Jewell MD Lumbar stenosis with neurogenic claudication (Primary Dx); Lumbar facet arthropathy 07/22/2024 Orders Only [facility] the [facility] Advanced Medicine [address] [place] [address] Advanced Medicine [address] [place] [address] Shanika Jewell MD Lumbar facet arthropathy (Primary Dx) 07/22/2024 Telephone [facility] [address] [place] [address] Advanced Medicine [address] [place] [address] Shanika Jewell MD post call follow up from Last 3 Months Immunizations Immunization Administration Dates Next Due Influenza, Trivalent, High D ose, Split, Preservative Free, Intramuscular 05/03/2018 Td, Not Adsorbed 07/03/2015 Surgical History Surgery Date Site/Laterality Comments CARDIAC CATHETERIZATION CORONARY ANGIOPLASTY WITH ST ENT PLACEMENT 07/03/2010 - 07/02/2011 CATARACT EXTRACTION 03/24 Medical History Medical History Date Comments Hx Other Medical DJD Hypertension Hyperlipidemia Heart attack (HCC) Head injury due to fall Syncope and collapse Chronic pain disorder Low back pain Cataract 07/24 Family History Medical History Relation Name Comments Heart disease Father Orion [place] Stroke Father [place]ion [place] Hypertension Mother helen spain Stroke Mother helen spain Hypertension Sister pooja parker Relation Name Status Comments Father [place]ion [place] Mother helen spain Sister pooja parker Social History Tobacco Use Types Packs/Day Years Used Date Smoking Tobacco: Former Cigarettes 1 25 0 07/03/1985 - 07/03/2010 Smokeless Tobacco: Never Tobacco Cessation:Counseling Given: Not Answered Comments:quit in 2010 Alcohol Use Standard Drinks/Week Comments Not Currently 0 (1 standard drink = 0.6 oz pur e alcohol) AUDIT-C Answer Date Recorded Q1: How often do you have a drink containing alc ohol? 2-3 times a week 09/12/2024 Q2: How many drinks containi ng alcohol do you have on a typical day when you are drinking? 1 or 2 09/12/2024 Q3: How often do you have si x or more drinks on one occasion? Never 09/12/2024 Hunger Vital Sign Answer Date Recorded Within the past 12 months, y ou worried that your food would run out before you got the money to buy more. Never true 09/13/19 25 Within the past 12 months, t he food you bought just didn't last and you didn't have money to get more. 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 Gender Identity Not on file Sexual Orientation Not on file Obstetrics History Last Filed Vital Signs Vital Sign Reading Time Taken Comments Blood Pressure 158/78 09/12/2024 11:16 AM CDT Pulse 67 09/12/2024 11:16 AM CDT Temperature 36.3 C (97.3 F) 09/12/2024 9:07 AM CDT Respiratory Rate 16 09/12/2024 11:01 AM CDT Oxygen Saturation 96% 09/12/2024 11:16 AM CDT Inhaled Oxygen Concentration - - Weight 113.4 kg (250 lb) 09/12/2024 9:07 AM CDT Height 182.9 cm (6') 09/12/2024 9:07 AM CDT Body Mass Index 33.91 09/12/2024 9:07 AM CDT Plan of Treatment Health Maintenance Due Date Last Done Comments Colon Cancer Screening-Colonoscopy 1953 Depression Screening 1953 Fall Risk Assessment 1953 Hepatitis C Screening 1953 Hepatitis B Screening 1971 Lung Cancer Screening 2003 Pneumococcal vaccine 65+ (1 of 1 - PCV) 2003 Zoster Vaccine (1 of 2) 2003 DTaP/Tdap/Td Vaccine (1 - Tdap) 07/04/2015 6 Abdominal Aortic Aneurysm (AAA) Screen 2018 Well Visit 65+ 2018 Influenza Vaccine (Season Ended) 2025 05/03/20 18, 05/01/2017 Goals Goal Patient Goal Type Associated Problems Recent Progress Patient-Stated? Author CCM Chronic Pain Care Plan Chronic Care Management No change(09/12 9:08 AM CDT) No Juliet Santillan, RN Note: Problem: Chronic Pain Goals: 1. Minimize further functional decline 2. Maximize quality of life 3. Control pain Strategies: - Activity/exercise program recommendation - Conservative stepwise pain medicine strategy with multi-disciplinary approach - Recommend healthy lifestyle strategies and compensatory methods as needed Medical Devices Implanted Type Area Telephone Answerer Device Identifier Shelf Expiration Date Model / Serial / Lot Cardiac Stents N/A: Heart Procedures Procedure Name Priority Date/Time Associated Diagnosis Comments PAIN MGMT IMAGING LUMBAR/SACRAL ABLATION BILATERAL Schedule Routine, Read Routine (OP Routine) 09/12/2024 10:55 AM CDT Spondylosis of lumbosacral region without myelopathy or radiculopathy PAIN MGMT IMAGING LUMBAR/SACRAL FACET/ MEDIAL BRANCH BLOCK BILATERAL Schedule Routine, Read Routine (OP Routine) 08/22/2024 12:42 PM CDL BULK DRIVER Lumbar stenosis with neurogenic claudication Lumbar facet arthropathy from Last 3 Months Results * Imaging Lumbar/Sacral Medial Branch RFA Bilateral ([id number]) (09/12/2024 10:55 AM CDT) Narrative [facility] - 09/12/2024 11:01 AM CDT The images from this study are not interpreted by Radiology. Please refer to the physician's procedure / OR operative note. Jose Winchester MD IMG PAIN MGMT PROCE DURES Final Result Performing Organization Address City/[facility] Co de Phone Number [email or web address] * Imaging Lumbar/Sacral Facet Medial Branch Block Bilateral ([id number]) (08/22/2024 12:42 PM CDL BULK DRIVER) Narrative [facility] - 08/22/2024 12:43 PM CDL BULK DRIVER The images from this study are not interpreted by Radiology. Please refer to the physician's procedure / OR operative note. Shanika Jewell MD IMG PAIN MGMT PROCEDURES F inal Result Performing Organization Address [facility] de Phone Number [facility] from Last 3 Months Insurance MEDICARE MEDICARE [facility] FEDERAL [facility] FEDERAL MEDICARE Care Teams Cylinder Loader Relationship Specialty Start Date End Date Francois Talley DO PCP - General 10/04/12 Erica Hogan, RN Registered Nurse 04/29/19
--- OUTSIDE RECORDS SUMMARY | 2024-10-18 10:15 | XMS_ITS | Referral Summary ---
Author Organization [facility] [address] Address [address] [place] [address] Care Team Providers Care Aircraft Charter Dispatcher Name Role Phone Francois Talley DO Primary Care Provider [phone] Erica Hogan RN Unavailable Unavailab le Encounters Date Type Department Care Team Description 09/12/2024 8:58 AM CDT - 09/12/2024 11:59 PM CDT Hospital Encounter [facility] [place] [facility] [address] [place] [address] for Advanced Medicine [address] [place] [address] Shanika Jewell MD Spondylosis of lumbosacral region without myelopathy or radiculopathy Discharge Disposition: Discharge to home or self care 09/09/2024 Telephone [facility] [address] [place] [address] for Advanced Medicine [address] [place] [address] Gibran Shaver MD PhD PMC Preprocedure 09/04/2024 Telephone [facility] [address] [facility] [address] [place] [address] Shanika Jewell MD blood thinner 08/23/2024 Telephone [facility] [address] [place] [address] Shanika Jewell MD Post-op Follow-up 08/22/2024 10:34 AM LATENT PRINT EXAMINER - 08/22/2024 11:59 PM LATENT PRINT EXAMINER Hospital Encounter [facility] [address] [place] [address] for Advanced Medicine [address] [place] [address] Shanika Jewell MD Spondylosis of lumbosacral region without myelopathy or radiculopathy (Primary Dx); Lumbar stenosis with neurogenic claudication; Lumbar facet arthropathy Discharge Disposition: Discharge to home or self care 08/20/2024 Telephone [facility] [place] [facility] [address] [place] [address] for Advanced Medicine [address] [place] [address] Shanika Jewell MD PMC Preprocedure 08/16/2024 Telephone [facility] [place] [facility] [address] [place] [address] for Advanced Medicine [address] [place] [address] Shanika Jewell MD PMC Preprocedure 08/12/2024 Telephone [facility] [place] [facility] [address] [place] [address] for Advanced Medicine [address] [place] [address] Shanika Jewell MD Scheduling Appointments 08/09/2024 Telephone [facility] [place] [facility] [address] [place] [address] Advanced Medicine [address] [place] [address] Shanika Jewell MD PMC Preprocedure 08/01/2024 Orders Only [facility] [place] [facility] [address] [place] [address] for Advanced Medicine [address] [place] [address] Shanika Jewell MD Lumbar stenosis with neurogenic claudication (Primary Dx); Lumbar facet arthropathy 07/31/2024 Orders Only [facility] [place] [facility] [address] [place] [address] [facility] [address] [place] [address] Shanika Jewell MD Lumbar stenosis with neurogenic claudication (Primary Dx); Lumbar facet arthropathy 07/22/2024 Orders Only [facility] [place] [facility] [address] [place] [address] Advanced Medicine [address] [place] [address] Shanika Jewell MD Lumbar facet arthropathy (Primary Dx) 07/22/2024 Telephone [facility] [place] [facility] [address] [facility] [address] [place] [address] Shanika Jewell MD post call follow up from Last 3 Months Allergies Active Allergy Reactions Criticality Noted Date [...] sciatica 07/20/2018 Coronary artery disease invo lving [place] coronary artery of [place] heart without angina pectoris 04/12/2017 History of coronary artery stent placement 04/12 Subdural hematoma 09/08/2015 Brain lesion (from injury) 09/08/2015 Cerebral hemorrhage 08/13/2015 Immunizations Immunization Administration Dates Next Due Influenza, Trivalent, High D ose, Split, Preservative Free, Intramuscular 05/03/2018 Td, Not Adsorbed 07/03/2015 Social History Tobacco Use Types Packs/Day Years [...] on file Legal Sex Male 9:25 PM LATENT 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 Author CCM Chronic Pain Care Plan Chronic Care Management No change(09/12 9:08 AM CDT) No Juliet Santillan RN Note: Problem: Chronic Pain Goals: 1. Minimize further functional decline 2. Maximize quality of life 3. Control pain Strategies: - Activity/exercise program recommendation - Conservative stepwise pain medicine strategy with multi-disciplinary approach - Recommend healthy lifestyle strategies and compensatory methods as needed Medical Devices Implanted Type Area Security Officer Device Identifier Shelf Expiration Date Model / [...] Read Routine (OP Routine) 08/22/2024 12:42 PM LATENT PRINT EXAMINER Lumbar stenosis with neurogenic claudication Lumbar facet arthropathy from Last 3 Months Results * Imaging Lumbar/Sacral Medial Branch RFA Bilateral ([id number]) (09/12/2024 10:55 AM CDT) Narrative [facility] - 09/12/2024 11:01 AM CDT The images from this study are not interpreted by Radiology. Please refer to the physician's procedure / OR operative note. Jose Winchester MD IMG PAIN MGMT PROCE DURES Final Result Performing Organization Address [facility] Co de Phone Number [email or web address] * Imaging Lumbar/Sacral Facet Medial Branch Block Bilateral ([id number]) (08/22/2024 12:42 PM LATENT PRINT EXAMINER) Narrative [facility] - 08/22/2024 12:43 PM LATENT PRINT EXAMINER The images from this study are not interpreted by Radiology. Please refer to the physician's procedure / OR operative note. Shanika Jewell MD IMG PAIN MGMT PROCEDURES F inal Result Performing Organization Address [facility] Co de Phone Number [facility] from Last 3 Months Insurance MEDICARE MEDICARE [facility] FEDERAL [facility] FEDERAL MEDICARE Care Teams Aircraft Charter Dispatcher Relationship Specialty Start Date End Date Francois Talley DO PCP - General 10/04/12 Erica Hogan, RN Registered Nurse 04/29/19
[2024-10-18 13:36] LABS: Basophils Absolute Auto 0.1 K/mm3 (0.0-0.1); Basophils Percent Auto 0.8 % (0.2-1.2); Eosinophils Absolute Auto 0.3 K/mm3 (0-0.3); Eosinophils Percent Auto 4.3 % (0-4.4); Hematocrit 47.6 % (42.0-52.0); Hemoglobin 15.9 g/dL (14.0-18.0); Immature Granulocyte Absolute 0.03 K/mm3 (0.00-0.031); Immature Granulocyte Percent A 0.4 % (0-0.5); Lymphocytes Absolute Auto 1.38 K/mm3 (0.9-3.2); Lymphocytes Percent Auto 17.8 % (18.3-44.2); Mean Corpuscular HGB Conc 33.4 g/dl (32-36); Mean Corpuscular Hemoglobin 30.3 pg (26-34); Mean Corpuscular Volume 90.8 fl (80-100); Mean Platelet Volume 11.8 fl (7.4-10.4); Monocytes Absolute Auto 0.9 K/mm3 (0.1-0.6); Neutrophils Absolute Auto 5.1 K/mm3 (1.3-6.7); Neutrophils Percent Auto 65.7 % (45.5-73.1); Platelet Count Result 248 k/mm3 (150-375); Red Blood Count 5.24 M/mm3 (4.6-6.20); Red Cell Distribution Width 12.8 % (11.5-14.5); White Blood Count 7.8 K/mm3 (4.5-10.0)
[2024-10-18 13:40] LABS: Alanine Aminotransferase 28 U/L (6-50); Albumin Level 4.5 g/dL (3.5-5.1); Alkaline Phosphatase 83 U/L (38-126); Anion Gap 8 mmol/L (4-12); Aspartate Amino Transferase 96 U/L (17-59); Bilirubin,Total 0.8 mg/dL (0.2-1.3); Blood Urea Nitrogen 11 mg/dL (9-20); Calcium 9.3 mg/dL (8.4-10.2); Carbon Dioxide 31 mmol/L (22-30); Chloride 98 mmol/L (98-107); Cholesterol 157 mg/dL (0-200); Estimated Glomerular Filt Rate > 60; Glucose 82 mg/dL (65-110); HDL Direct 60 mg/dL; Potassium 4.6 mmol/L (3.4-5.0); Sodium 137 mmol/L (137-145); Triglycerides 78 mg/dL (<150)
[2024-10-18 13:52] LABS: LDL Cholesterol Direct 58 mg/dL
[2024-10-18 14:07] LABS: Prostate Specific Antigen 2.3 ng/mL (< OR = 4.0)
== END 2024-10-18 10:04 | disposition home or self-care (01) ==
LOC: ANHGOSHLAB 10:04
PROVIDERS: PCP Internal Medicine; Visit Provider Clinical Nurse Specialist
DX: E78.2 Mixed hyperlipidemia (principal); I10 Essential (primary) hypertension; I25.10 Atherosclerotic heart disease of native coronary artery without angina pectoris; D72.829 Elevated white blood cell count, unspecified; Z12.5 Encounter for screening for malignant neoplasm of prostate
CPT/HCPCS: 36415; 80053; 80061; 84153; 85025; G0103

== ENCOUNTER 2024-11-12 12:46 | Outpatient (CLI) | payer BC, MEDICARE, SELFPAY ==
--- NOTE | ~2024-11-12 | CT_ITS ---
CT Scan of the Chest without Contrast: Clinical Indication: Lung cancer screening, nicotine dependence Technique: Contiguous sections were acquired throughout the chest without intravenous contrast. Dose reduction technique was used on this scan by utilizing automated exposure control and iterative recon struction technique. The dose-length product (DLP) was 345.39 mGy-cm. COMPARISON: 11/07/2023 Findings: There is no evidence of any significant mediastinal, hilar or axillary lymphadenopathy. Coronary kirk ry calcifications are present. There is no evidence of pleural or pericardial effusion. The lungs are clear. No pulmonary nodules or infiltrates are noted. Images through the upper abdomen reveal no abnormalities. Impression: Lung RADS 1: Negative. 12 month follow-up screening CT advised. Reviewed, dictated and finalized at location . Impression: Lung RADS 1: Negative. 12 month follow-up screening CT advised.
== END 2024-11-12 12:47 | disposition home or self-care (01) ==
LOC: GOSHIMG 12:46
PROVIDERS: PCP Clinical Nurse Specialist; Visit Provider Clinical Nurse Specialist
DX: Z12.2 Encounter for screening for malignant neoplasm of respiratory organs (principal); Z87.891 Personal history of nicotine dependence
CPT/HCPCS: 71271

== ENCOUNTER 2024-12-13 09:07 | Outpatient (CLI) | payer BC, SELFPAY ==
--- OUTSIDE RECORDS SUMMARY | 2024-12-13 09:13 | XMS_ITS | Referral Summary ---
Author Organization [facility] [address] Address [address] [place] [address] Care Team Providers Care Video Specialist Name Role Phone Francois Talley DO Primary Care Provider +1- [phone] Erica Hogan RN Unavailable Unavailab le Encounters Date Type Department Care Team Description 10/23/2024 11:53 AM CDT - 10/23/2024 11:59 PM CDT Hospital Encounter [facility] [address] [place] [address] Advanced [place] [address] [place] [address] Wendy Salinas NP Lumbar facet arthropathy (Primary Dx); Lumbar stenosis with neurogenic claudication Discharge Disposition: Discharge to home or self care 09/12/2024 8:58 AM CDT - 09/12/2024 11:59 PM CDT Hospital Encounter [facility] [address] [place] [address] [facility] [address] [place] [address] Shanika Jewell MD Spondylosis of lumbosacral region without myelopathy or radiculopathy Discharge Disposition: Discharge to home or self care from Last 3 Months Allergies Active Allergy Reactions Criticality Noted Date Comments Iodinated Contrast Media Hives Medium Iodine Rash High Medications aspirin (ASPIR-81) 81 mg tablet take 1 Tablet by oral route every day 0 0 7 Active hydroCHLOROthiazi de (HYDRODIURIL) 12.5 mg tablet take 1 tablet by oral route every day 0 0 7 Active therapeutic multivitamin (THERA) tabletIndications :Vitamin Deficiency Prevention Take 1 tablet by mouth daily Active losartan (COZAAR) 100 mg tablet Take 1 tablet (100 mg total) by mouth daily Active atorvastatin (LIPITOR) 80 mg tablet TAKE 1/2 TABLET BY MOUTH EVERY EVENING 4 Active metoprolol XL (TOPROL-XL) 50 mg extended release tablet Take 1 tablet (50 mg total) by mouth daily 4 Active clopidogreL (PLAVIX) 75 mg tablet TAKE 1 TABLET BY MOUTH EVERY DAY 90 tablet 2 5 Active Active Problems Problem Noted Date Diagnosed Date Lumbar stenosis with neurogenic claudication Lumbar facet arthropathy 06/19/2024 Other chronic pain 04/29/2019 Lumbar radiculopathy - Left 10/29/2018 Spondylosis of lumbosacral r egion without myelopathy or radiculopathy 08/22/2018 DDD (degenerative disc disease), lumbar 08/22/19 19 Chronic bilateral low back pain without sciatica 07/20/2018 Coronary artery disease invo lving [place] coronary artery of [place] heart without angina pectoris 04/12/2017 History of [...] containing alc ohol? 2-3 times a week 10/23/2024 Q2: How many drinks containi ng alcohol do you have on a typical day when you are drinking? 1 or 2 10/23/2024 Q3: How often do you have si x or more drinks on one occasion? 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 Gender Identity Not on file Sexual Orientation Not on file Last Filed Vital Signs Vital Sign Reading Time Taken Comments Blood Pressure 178/88 10/23/2024 12:03 PM CDT Pulse 71 10/23/2024 12:03 PM CDT Temperature 36.3 C (97.3 F) 10/23/2024 12:03 PM CDT Respiratory Rate 16 10/23/2024 12:03 PM CDT Oxygen Saturation 97% 10/23/2024 12:03 PM CDT Inhaled Oxygen Concentration - - Weight 111.6 kg (246 lb) 10/23/2024 12:03 PM CDT Height 182.9 cm (6') 10/23/2024 12:03 PM CDT Body Mass Index 33.36 10/23/2024 12:03 PM CDT Plan of Treatment Not on file Goals Goal Patient Goal Type Associated Problems Recent Progress Patient-Stated? Author CCM Chronic Pain Care Plan Chronic Care Management No change(09/12 9:08 AM CDT) Juliet Taveras, RN Note: Problem: Chronic Pain Goals: 1. Minimize further functional decline 2. Maximize quality of life 3. Control pain Strategies: - Activity/exercise program recommendation - Conservative stepwise pain medicine strategy with multi-disciplinary approach - Recommend healthy lifestyle strategies and compensatory methods as needed Medical Devices Implanted Type Area Branch Lending Manager Device Identifier Shelf Expiration Date Model / Serial / Lot Cardiac Stents N/A: Heart Procedures Procedure Name Priority Date/Time Associated Diagnosis Comments PAIN MGMT IMAGING LUMBAR/SACRAL ABLATION BILATERAL Schedule Routine, Read Routine (OP Routine) 09/12/2024 10:55 AM CDT Spondylosis of lumbosacral region without myelopathy or radiculopathy from Last 3 Months Results * Imaging Lumbar/Sacral Medial Branch RFA Bilateral ([id number]) (09/12/2024 10:55 AM CDT) Narrative [facility] - 09/12/2024 11:01 AM CDT The images from this study are not interpreted by Radiology. Please refer to the physician's procedure / OR operative note. us Jose Winchester MD IMG PAIN MGMT PROCE KRISTIES Final Result [facility] from Last 3 Months Insurance MEDICARE MEDICARE [facility] FEDERAL MEDICARE Care Teams Video Specialist Relationship Specialty Start Date End Date Francois Talley DO PCP - General 10/04/12 Erica Hogan, RN Registered Nurse 04/29/19
--- OUTSIDE RECORDS SUMMARY | 2024-12-13 09:13 | XMS_ITS | Clinical Summary ---
Author Organization [facility] [address] Address [address] [place] [address] Care Team Providers Care Lpn Or Medical Assistant Name Role Phone Francois Talley DO Primary Care Provider +1- [phone] Erica Hogan RN Unavailable Unavailab le Allergies [...] sciatica 07/20/2018 Coronary artery disease invo lving [place] coronary artery of [place] heart without angina pectoris 04/12/2017 History of coronary artery stent placement 04/12 Subdural hematoma 09/08/2015 Brain lesion (from injury) 09/08/2015 Cerebral hemorrhage 08/13/2015 Encounters Date Type Department Care Team Description 10/23/2024 11:53 AM CDT - 10/23/2024 11:59 PM CDT Hospital Encounter [facility] [address] [place] [address] Medicine [address] [place] [address] Wendy Salinas NP Lumbar facet arthropathy (Primary Dx); Lumbar stenosis with neurogenic claudication Discharge Disposition: Discharge to home or self care 09/12/2024 8:58 AM CDT - 09/12/2024 11:59 PM CDT Hospital Encounter [facility] [address] Medicine [address] [place] [address] Shanika Jewell MD Spondylosis of lumbosacral region without myelopathy or radiculopathy Discharge Disposition: Discharge to home or self care from Last 3 Months Immunizations Immunization Administration [...] Tobacco Cessation:Counseling Given: Not Answered Comments:quit in 2011 Alcohol Use Standard Drinks/Week Comments Not Currently [...] on file 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 Gender Identity Not on file Sexual Orientation [...] 10/23/2024 12:03 PM CDT Plan of Treatment Health Maintenance Due [...] as needed Medical Devices Implanted Type Area Cold Mill Inspector Device Identifier Shelf Expiration Date Model / Serial / Lot Cardiac Stents N/A: Heart Procedures Procedure Name Priority Date/Time Associated Diagnosis Comments PAIN MGMT IMAGING LUMBAR/SACRAL ABLATION BILATERAL Schedule Routine, Read Routine (OP Routine) 09/12/2024 10:55 AM CDT Spondylosis of lumbosacral region without myelopathy or radiculopathy from Last 3 Months Results * Imaging Lumbar/Sacral Medial Branch RFA Bilateral ([id number]) (09/12/2024 10:55 AM CDT) Narrative [facility] - 09/12/2024 11:01 AM CDT The images from this study are not interpreted by Radiology. Please refer to the physician's procedure / OR operative note. us Jose Winchester MD IMG PAIN MGMT PROCE DURES Final Result [facility] from Last 3 Months Insurance MEDICARE MEDICARE [facility] FEDERAL [facility] FEDERAL Member Subscriber Plan / Payer (Ef fective 2020-Present) Name:Orion [place] Relation to Subscriber:Spouse Name:SPAIN,POOJA July Date of :1899 (Home) Address: [address] [place] [address] Payer ID:[id number] (NAIC) Group ID:[id number] Type:BC ALLIANCE Address: [address] [place] [id number] MEDICARE Care Teams Lpn Or Medical Assistant Relationship Specialty Start Date End Date Francois Talley DO PCP - General 10/04/12 Erica Hogan, RN Registered Nurse 04/29/19
[2024-12-13 12:32] LABS: Alanine Aminotransferase 22 U/L (6-50); Albumin Level 4.3 g/dL (3.5-5.1); Alkaline Phosphatase 83 U/L (38-126); Anion Gap 8 mmol/L (4-12); Aspartate Amino Transferase 73 U/L (17-59); Bilirubin,Total 0.6 mg/dL (0.2-1.3); Blood Urea Nitrogen 19 mg/dL (9-20); Calcium 9.4 mg/dL (8.4-10.2); Carbon Dioxide 25 mmol/L (22-30); Chloride 101 mmol/L (98-107); Estimated Glomerular Filt Rate > 60; Glucose 105 mg/dL (65-110); Potassium 3.7 mmol/L (3.4-5.0); Sodium 134 mmol/L (137-145); Total Protein 7.6 g/dL (6.3-8.2)
== END 2024-12-13 09:08 | disposition home or self-care (01) ==
LOC: ANHGOSHLAB 09:09
PROVIDERS: PCP Clinical Nurse Specialist; Visit Provider Clinical Nurse Specialist
DX: R74.01 Elevation of levels of liver transaminase levels (principal)
CPT/HCPCS: 36415; 80053

== ENCOUNTER 2025-02-20 08:37 | Outpatient (CLI) | payer BC, SELFPAY ==
--- OUTSIDE RECORDS SUMMARY | 2025-02-20 08:51 | XMS_ITS | Clinical Summary ---
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
[2025-02-20 13:09] LABS: Alanine Aminotransferase 25 U/L (6-50); Albumin Level 4.4 g/dL (3.5-5.1); Alkaline Phosphatase 77 U/L (38-126); Anion Gap 5 mmol/L (4-12); Aspartate Amino Transferase 103 U/L (17-59); Bilirubin,Total 0.8 mg/dL (0.2-1.3); Blood Urea Nitrogen 13 mg/dL (9-20); Calcium 9.6 mg/dL (8.4-10.2); Carbon Dioxide 31 mmol/L (22-30); Chloride 100 mmol/L (98-107); Estimated Glomerular Filt Rate > 60; Glucose 81 mg/dL (65-110); Potassium 4.2 mmol/L (3.4-5.0); Sodium 136 mmol/L (137-145); Total Protein 7.9 g/dL (6.3-8.2)
== END 2025-02-20 08:38 | disposition home or self-care (01) ==
PROVIDERS: PCP Clinical Nurse Specialist; Visit Provider Clinical Nurse Specialist
DX: R74.01 Elevation of levels of liver transaminase levels (principal)
CPT/HCPCS: 36415; 80053

== ENCOUNTER 2025-02-28 14:18 | Outpatient (CLI) | payer BC, SELFPAY ==
--- OUTSIDE RECORDS SUMMARY | 2025-02-28 14:22 | XMS_ITS | Clinical Summary ---
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 Address: [address] [place] [address] [facility] Address: [address] [place] [address] MEDICARE Care Teams Nurse Private Duty Relationship Specialty Start Date End Date Francois Talley DO PCP - General 10/04/12 Erica Hogan, RN Registered Nurse 04/29/19
[2025-02-28 19:13] LABS: Alanine Aminotransferase 22 U/L (6-50); Albumin Level 4.3 g/dL (3.5-5.1); Alkaline Phosphatase 81 U/L (38-126); Anion Gap 8 mmol/L (4-12); Aspartate Amino Transferase 81 U/L (17-59); Bilirubin,Total 0.5 mg/dL (0.2-1.3); Blood Urea Nitrogen 17 mg/dL (9-20); Calcium 9.3 mg/dL (8.4-10.2); Carbon Dioxide 27 mmol/L (22-30); Chloride 99 mmol/L (98-107); Estimated Glomerular Filt Rate > 60; Glucose 88 mg/dL (65-110); Potassium 3.9 mmol/L (3.4-5.0); Sodium 134 mmol/L (137-145); Total Protein 7.8 g/dL (6.3-8.2)
[2025-02-28 19:14] LABS: Hepatitis B Surface Antigen Negative (Negative)
[2025-02-28 19:45] LABS: Thyroid Stimulating Hormone 0.713 uIU/mL (0.465-4.680)
[2025-02-28 19:49] LABS: HIV 1/2 Ab P24 Ag Result Negative (Negative)
== END 2025-02-28 14:19 | disposition home or self-care (01) ==
LOC: ANHGOSHLAB 14:19
PROVIDERS: PCP Clinical Nurse Specialist; Visit Provider Clinical Nurse Specialist
DX: R74.01 Elevation of levels of liver transaminase levels (principal)
CPT/HCPCS: 36415; 80053; 84443; 86703; 86803; 87340; G0432

== ENCOUNTER 2025-04-28 09:09 | Outpatient (CLI) | payer BC, SELFPAY ==
[2025-04-28 13:18] LABS: Hematocrit 49.4 % (42.0-52.0); Hemoglobin 16.6 g/dL (14.0-18.0); Mean Corpuscular HGB Conc 33.6 g/dl (32-36); Mean Corpuscular Hemoglobin 30.1 pg (26-34); Mean Corpuscular Volume 89.5 fl (80-100); Platelet Count Result 276 k/mm3 (150-375); Red Blood Count 5.52 M/mm3 (4.6-6.20); White Blood Count 8.6 K/mm3 (4.5-10.0)
[2025-04-28 13:19] LABS: Alanine Aminotransferase 26 U/L (6-50); Albumin Level 4.8 g/dL (3.5-5.1); Alkaline Phosphatase 86 U/L (38-126); Anion Gap 9 mmol/L (4-12); Aspartate Amino Transferase 56 U/L (17-59); Bilirubin,Total 0.7 mg/dL (0.2-1.3); Blood Urea Nitrogen 12 mg/dL (9-20); Calcium 9.7 mg/dL (8.4-10.2); Carbon Dioxide 30 mmol/L (22-30); Chloride 98 mmol/L (98-107); Estimated Glomerular Filt Rate > 60; Glucose 87 mg/dL (65-110); Potassium 3.8 mmol/L (3.4-5.0); Sodium 137 mmol/L (137-145); Total Protein 8.5 g/dL (6.3-8.2)
[2025-04-28 13:23] LABS: Iron 84 ug/dL (49-181)
[2025-04-28 13:33] LABS: INR 1.0; Immunoglobulin G 1337 mg/dL (700-1600); Immunoglobulin M 170 mg/dL (40-230); Prothrombin Time 12.8 Seconds (11.1-14.7)
[2025-04-28 13:41] LABS: Percent Iron Saturation 23 % (20-50)
[2025-04-28 14:10] LABS: Ferritin 75.40 ng/mL (11.1-264)
[2025-04-29 07:09] LABS: GGT 16 IU/L (0-65)
[2025-04-30 11:08] LABS: ANA by IFA Rfx Titer/Pattern Negative (.)
== END 2025-04-28 09:10 | disposition home or self-care (01) ==
LOC: ANHGOSHLAB 09:10
PROVIDERS: PCP Clinical Nurse Specialist; Visit Provider Nurse Practitioner Family
DX: R74.01 Elevation of levels of liver transaminase levels (principal)
CPT/HCPCS: 36415; 80053; 82103; 82390; 82728; 82784; 82977; 83540; 83550; 85027; 85610; 86015; 86038; 86376; 86381